=== PATIENT | female | born 1975 | race American Indian/Alaskan Native ===

== ENCOUNTER 2019-05-26 14:06 | Emergency (ER) | payer SELFPAY ==
--- NOTE | 2019-05-26 15:52 | Event Note ---
ED Screening Note Date of service: 05/26/19 Time: 15:50 ED Screening Note: 44 y o with a hx of anemia presents for fatigue weakness and dizzy spells was se nt to ED by PCP DR Khan at [facility] to be evaluated This initial assessment/diagnostic orders/clinical plan/treatment(s) is/are subject to change based on patients health status, clinical progression and re- assessment by fellow clinical providers in the ED. Further treatment and workup at subsequent clinical providers discretion. Patient/guardian urged not to elope from the ED as their condition may be serious if not clinically assessed and managed. Initial orders include: cbc, cmp
[2019-05-26 15:53] VITALS: BP 152/70
[2019-05-26 17:11] LABS: Hematocrit 22.2 % (30.3-42.9); Hemoglobin 6.9 gm/dl (10.1-14.3); Mean Corpuscular HGB Conc 31 % (30-34); Platelet Count 413 K/mm3 (140-440); Red Blood Count 3.49 M/mm3 (3.65-5.03)
[2019-05-26 17:15] LABS: Mean Corpuscular Volume 64 fl (79-97); Red Cell Distribution Width 26.4 % (13.2-15.2)
[2019-05-26 17:23] LABS: BUN/Creatinine Ratio 17; Blood Urea Nitrogen 10 mg/dL (7-17); Calcium 9.3 mg/dL (8.4-10.2); Hemolysis Index 34
[2019-05-26 18:20] LABS: Eosinophils % (Manual) 0 % (0.0-4.3); Hypochromasia 2+; Total Cells Counted 100
[2019-05-26 18:21] LABS: Anisocytosis 3+; Dimorphic RBC Yes; Giant Platelets Few; Target Cells 3+
[2019-05-26 18:22] LABS: Platelet Estimate Consistent w Auto
--- NOTE | 2019-05-26 19:43 | Emergency Department Report ---
ED General Adult HPI - General Chief complaint: Recheck/Abnormal Lab/Rx Stated complaint: DIZZY Time Seen by Provider: 05/26/19 19:32 Source: patient Mode of arrival: Ambulatory Limitations: No Limitations - History of Present Illness Initial comments: Forefoot 44-year-old [place] female with reported history of recurrent anemia last blood transfusion October 2018 presents [facility] complaining of having episodes of fatigue and dizziness and and weakness which she thinks is related to her anemia. She went to her primary care doctor last week found to have a hemoglobin of 6.2 was advised to come to the emergency department for further evaluation and treatment options. Again this hemoglobin was taken 1 week ago. States her primary care had only recommended her to increase her iron intake. She reports no hematuria no hematemesis no hematochezia. No fever, chills, sweats no chest pain or palpitations - Related Data Home Medications Medication Instructions Recorded Confirmed Last Taken Cetirizine HCl [Allergy Relief] 10 mg PO DAILY 12/11/16 12/11/16 12/16/16 Cyclobenzaprine [Flexeril] 10 mg PO BID 12/11/16 12/11/16 12/16/16 Ergocalciferol [Vitamin D2] 1 cap PO QWEEK 12/11/16 12/11/16 12/16/16 Ferrous Sulfate [Feosol] 325 mg PO QDAY 12/11/16 12/11/16 12/16/16 Folic Acid [Folvite] 1 mg PO QDAY 12/11/16 12/11/16 12/16/16 metFORMIN [Glucophage] 500 mg PO BID 12/11/16 12/17/16 2 Days Ago ~12/15/16 Lisinopril [Zestril] 10 mg PO DAILY 12/17/16 12/17/16 12/16/16 Allergies Allergy/AdvReac Type Severity Reaction Status Date / Time shellfish derived Allergy Anaphylaxis Verified 12/11/16 10:51 ED Review of Systems ROS: Stated complaint: DIZZY Other details as noted in HPI Comment: All other systems reviewed and negative ED Past Medical Hx - Past Medical History Previous Medical History?: Yes Hx Hypertension: Yes Hx Diabetes: Yes (Pre diabetic 2 years) Hx Arthritis: Yes (knees) Hx Asthma: Yes Hx HIV: No - Surgical History Past Surgical History?: Yes Additional Surgical History: Gastric sleeve - Social History Smoking Status: Current Every Day Smoker Substance Use Type: None - Medications Home Medications: Home Medications Medication Instructions Recorded Confirmed Last Taken Type Cetirizine HCl [Allergy Relief] 10 mg PO DAILY 12/11/16 12/11/16 12/16/16 History Cyclobenzaprine [Flexeril] 10 mg PO BID 12/11/16 12/11/16 12/16/16 History Ergocalciferol [Vitamin D2] 1 cap PO QWEEK 12/11/16 12/11/16 12/16/16 History Ferrous Sulfate [Feosol] 325 mg PO QDAY 12/11/16 12/11/16 12/16/16 History Folic Acid [Folvite] 1 mg PO QDAY 12/11/16 12/11/16 12/16/16 History metFORMIN [Glucophage] 500 mg PO BID 12/11/16 12/17/16 2 Days Ago History ~12/15/16 Lisinopril [Zestril] 10 mg PO DAILY 12/17/16 12/17/16 12/16/16 History ED Physical Exam - General Limitations: No Limitations General appearance: alert, in no apparent distress - Head Head exam: Present: atraumatic, normocephalic - Eye Eye exam: Present: normal appearance, PERRL, EOMI Pupils: Present: normal accommodation - ENT ENT exam: Present: normal exam, mucous membranes moist, TM's normal bilaterally - Neck Neck exam: Present: normal inspection - Respiratory Respiratory exam: Present: normal lung sounds bilaterally. Absent: respiratory distress, rales, rhonchi, chest wall tenderness, accessory muscle use - Cardiovascular Cardiovascular Exam: Present: regular rate, normal rhythm. Absent: systolic murmur, diastolic murmur, rubs, gallop - GI/Abdominal GI/Abdominal exam: Present: soft, normal bowel sounds. Absent: guarding - Rectal Rectal exam: Absent: deferred - Extremities Exam Extremities exam: Present: normal inspection - Back Exam Back exam: Present: normal inspection - Neurological Exam Neurological exam: Present: alert, oriented X3 - Psychiatric Psychiatric exam: Present: normal affect, normal mood - Skin Skin exam: Present: warm, dry, intact, normal color. Absent: rash ED Course Vital Signs 05/26/19 15:50 Temperature 98.0 F Pulse Rate 86 Respiratory 18 Rate Blood Pressure 152/70 O2 Sat by Pulse 100 Oximetry ED Medical Decision Making - Lab Data Result diagrams: 05/26/19 16:40 05/26/19 16:40 - Medical Decision Making 44-year-old [place] female with reported thalassemia with symptomatic anemia but no objective findings. States she is unable to stay for transfusion even if it was necessary due to her needing to get back to us I am encouraged her to follow-up with her primary care provider continue the iron and to hydrate well and have her her labs reevaluated in the next few days. Currently she is in no acute respiratory distress speaking in full sentences no tachycardia no easy bruising no spontaneous bleeding has been appreciated. Critical care attestation.: If time is entered above; I have spent that time in minutes in the direct care of this critically ill patient, excluding procedure time. ED Disposition Clinical Impression: Symptomatic anemia Disposition: - TO HOME OR SELFCARE Is pt being admited?: No Does the pt Need Aspirin: No Condition: Stable Instructions: Anemia (ED), Iron Deficiency Anemia (ED), Iron Rich Diet (ED) Additional Instructions: Please follow-up with your primary care care doctor for reevaluation of your anemia has your hemoglobin has improved from 6.2-6.9. Symptomatic anemia often requires blood transfusion as we discussed. Am aware that you are able to stay in the emergency department for any blood transfusions or any further treatment alternatives Referrals: PRIMARY CARE [Primary Care Provider] - 3-5 Days Forms: Work/School Release Form(ED)
== END 2019-05-26 20:02 | disposition home or self-care (01) ==
LOC: ED 14:06
DX: D64.9 Anemia, unspecified (principal); I10 Essential (primary) hypertension; E11.9 Type 2 diabetes mellitus without complications; M17.0 Bilateral primary osteoarthritis of knee; J45.909 Unspecified asthma, uncomplicated; F17.200 Nicotine dependence, unspecified, uncomplicated; Z79.899 Other long term (current) drug therapy; Z91.013 Allergy to seafood; Z98.890 Other specified postprocedural states
CPT/HCPCS: 36415; 80048; 85007; 85025; 86850; 86900; 86901; 99283

== ENCOUNTER 2019-05-31 06:46 | Emergency (ER) | payer SELFPAY ==
[2019-05-31 07:54] LABS: Hematocrit 22.3 % (30.3-42.9); Hemoglobin 6.8 gm/dl (10.1-14.3); Mean Corpuscular HGB Conc 30 % (30-34); Mean Corpuscular Volume 63 fl (79-97); Platelet Count 516 K/mm3 (140-440); Red Blood Count 3.54 M/mm3 (3.65-5.03); Red Cell Distribution Width 26.3 % (13.2-15.2)
[2019-05-31] MEDS ORDERED: SODIUM CHLORIDE 0.9% 500 ML 500 ML IV ONE (09:22)
[2019-05-31 09:25] LABS: Total Cells Counted 100
[2019-05-31 09:26] LABS: Anisocytosis 3+; Hypochromasia 3+
[2019-05-31 09:27] LABS: Platelet Estimate Consistent w Auto; Target Cells 2+
--- NOTE | 2019-05-31 09:27 | Emergency Department Report ---
ED Female HPI - General Chief complaint: Vaginal Bleeding Stated complaint: BLOOD TRANSFUSION Time Seen by Provider: 05/31/19 09:14 Source: patient Mode of arrival: Ambulatory Limitations: No Limitations - History of Present Illness Initial comments: 44-year-old female the past medical history of chronic iron deficiency anemia, thalasemia, dysfunctional uterine bleeding, and other medical conditions presents to the hospital complaints of anemia and needing a blood transfusion. Patient was seen here on May 25 after having a hemoglobin value of 6.2 resulting in lab work performed in her doctor's office. In the ER hemoglobin was 6.9 and patient declined to stay for blood transfusion. She now returns stating that she continues to have tiredness and fatigue with activity and palpitations with exertion. Mild shortness of breath reported. Patient also started her menstrual cycle on May 27 and has heavy bleeding requiring use of pads and tampons. On average patient has a menstrual cycle once a month lasting 5 to 6 days. She has been compliant with her folic acid and iron pills. Last blood transfusion was October 2018. 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 - Related Data Home Medications Medication Instructions Recorded Confirmed Last Taken Cetirizine HCl [Allergy Relief] 10 mg PO DAILY 12/11/16 12/11/16 12/16/16 Cyclobenzaprine [Flexeril] 10 mg PO BID 12/11/16 12/11/16 12/16/16 Ergocalciferol [Vitamin D2] 1 cap PO QWEEK 12/11/16 12/11/16 12/16/16 Ferrous Sulfate [Feosol] 325 mg PO QDAY 12/11/16 12/11/16 12/16/16 Folic Acid [Folvite] 1 mg PO QDAY 12/11/16 12/11/16 12/16/16 metFORMIN [Glucophage] 500 mg PO BID 12/11/16 12/17/16 2 Days Ago ~12/15/16 Lisinopril [Zestril] 10 mg PO DAILY 12/17/16 12/17/16 12/16/16 Allergies Allergy/AdvReac Type Severity Reaction Status Date / Time shellfish derived Allergy Anaphylaxis Verified 12/11/16 10:51 ED Review of Systems ROS: Stated complaint: BLOOD TRANSFUSION Other details as noted in HPI Comment: All other systems reviewed and negative ED Past Medical Hx - Past Medical History Previous Medical History?: Yes Hx Hypertension: Yes Hx Diabetes: Yes (Pre diabetic 2 years) Hx Arthritis: Yes (knees) Hx Asthma: Yes Hx HIV: No Additional medical history: Iron Defiency Anemia, Dysfunctional Uterine Bleeding, thalasemia (pt unsure what type) - Surgical History Past Surgical History?: Yes Additional Surgical History: Gastric sleeve - Social History Smoking Status: Light Tobacco Smoker - Medications Home Medications: Home Medications Medication Instructions Recorded Confirmed Last Taken Type Cetirizine HCl [Allergy Relief] 10 mg PO DAILY 12/11/16 12/11/16 12/16/16 History Cyclobenzaprine [Flexeril] 10 mg PO BID 12/11/16 12/11/16 12/16/16 History Ergocalciferol [Vitamin D2] 1 cap PO QWEEK 12/11/16 12/11/16 12/16/16 History Ferrous Sulfate [Feosol] 325 mg PO QDAY 12/11/16 12/11/16 12/16/16 History Folic Acid [Folvite] 1 mg PO QDAY 12/11/16 12/11/16 12/16/16 History metFORMIN [Glucophage] 500 mg PO BID 12/11/16 12/17/16 2 Days Ago History ~12/15/16 Lisinopril [Zestril] 10 mg PO DAILY 12/17/16 12/17/16 12/16/16 History ED Physical Exam - General Limitations: No Limitations - Other Other exam information: General: No acute distress Head: Atraumatic Eyes: normal appearance ENT: Moist mucous membranes Neck: Normal appearance, no midline tenderness Chest: Clear to auscultation bilaterally CV: Regular rate and rhythm Abdomen: Soft, normal bowel sounds, nontender, nondistended, no rebound or guarding Back: Normal inspection Extremity: Normal inspection, full range of motion Neuro: Alert O x 3, no facial asymmetry, speech clear, no gross motor sensory deficit Psych: Appropriate behavior Skin: No rash ED Course Vital Signs 05/31/19 05/31/19 05/31/19 06:50 09:08 11:30 Temperature 98.4 F 98.1 F 98.0 F Pulse Rate 79 66 61 Respiratory 18 16 9 L Rate Blood Pressure 129/77 114/56 Blood Pressure 124/83 [Left] O2 Sat by Pulse 98 98 100 Oximetry 05/31/19 05/31/19 05/31/19 11:55 12:25 12:55 Temperature 98.2 F 98.1 F 98.1 F Pulse Rate 63 58 L 56 L Respiratory 12 13 11 L Rate Blood Pressure 137/62 118/72 141/75 Blood Pressure [Left] O2 Sat by Pulse 100 100 100 Oximetry 05/31/19 05/31/19 05/31/19 13:25 13:55 14:21 Temperature 98.2 F 98.1 F 98.1 F Pulse Rate 71 75 75 Respiratory 11 L 13 11 L Rate Blood Pressure 132/77 117/75 121/66 Blood Pressure [Left] O2 Sat by Pulse 100 100 100 Oximetry ED Medical Decision Making - Lab Data Result diagrams: 05/31/19 07:09 Lab Results 05/31/19 05/31/19 05/31/19 Range/Units 07:09 07:09 07:09 WBC 7.1 (4.5-11.0) K/mm3 RBC 3.54 L (3.65-5.03) M/mm3 Hgb 6.8 L (10.1-14.3) gm/dl Hct 22.3 L (30.3-42.9) % MCV 63 L (79-97) fl MCH 19 L (28-32) pg MCHC 30 (30-34) % RDW 26.3 H (13.2-15.2) % Plt Count 516 H (140-440) K/mm3 Add Manual Diff Complete Total Counted 100 Seg Neuts % (Manual) 57.0 (40.0-70.0) % Band Neutrophils % 0 % Lymphocytes % (Manual) 29.0 (13.4-35.0) % Reactive Lymphs % (Man) 0 % Monocytes % (Manual) 11.0 H (0.0-7.3) % Eosinophils % (Manual) 2.0 (0.0-4.3) % Basophils % (Manual) 1.0 (0.0-1.8) % Metamyelocytes % 0 % Myelocytes % 0 % Promyelocytes % 0 % Blast Cells % 0 % Nucleated RBC % Not Reportable Seg Neutrophils # Man 4.0 (1.8-7.7) K/mm3 Band Neutrophils # 0.0 K/mm3 Lymphocytes # (Manual) 2.1 (1.2-5.4) K/mm3 Abs React Lymphs (Man) 0.0 K/mm3 Monocytes # (Manual) 0.8 (0.0-0.8) K/mm3 Eosinophils # (Manual) 0.1 (0.0-0.4) K/mm3 Basophils # (Manual) 0.1 (0.0-0.1) K/mm3 Metamyelocytes # 0.0 K/mm3 Myelocytes # 0.0 K/mm3 Promyelocytes # 0.0 K/mm3 Blast Cells # 0.0 K/mm3 WBC Morphology Not Reportable Hypersegmented Neuts Not Reportable Hyposegmented Neuts Not Reportable Hypogranular Neuts Not Reportable Smudge Cells Not Reportable Toxic Granulation Not Reportable Toxic Vacuolation Not Reportable Dohle Bodies Not Reportable Pelger-Huet Anomaly Not Reportable Aide Rods Not Reportable Platelet Estimate Consistent w auto Clumped Platelets Not Reportable Plt Clumps, EDTA Not Reportable Large Platelets Not Reportable Giant Platelets Not Reportable Platelet Satelliting Not Reportable Plt Morphology Comment Not Reportable RBC Morphology Not Reportable Dimorphic RBCs Not Reportable Polychromasia Not Reportable Hypochromasia 3+ Poikilocytosis Not Reportable Anisocytosis 3+ Microcytosis 2+ Macrocytosis Not Reportable Spherocytes Not Reportable Pappenheimer Bodies Not Reportable Sickle Cells Not Reportable Target Cells 2+ Tear Drop Cells Not Reportable Ovalocytes Not Reportable Helmet Cells Not Reportable Estrada-Tranquillity Bodies Not Reportable [place] Rings Not Reportable Jarret Cells Not Reportable Bite Cells Not Reportable Crenated Cell Not Reportable Elliptocytes Not Reportable Acanthocytes (Spur) Not Reportable Rouleaux Not Reportable Hemoglobin C Crystals Not Reportable Schistocytes Not Reportable Malaria parasites Not Reportable Arnoldo Bodies Not Reportable Hem Pathologist Commnt No HCG, Qual Negative (Negative) HCG, Quant < 2 (0-4) mIU/mL Urine Color (Yellow) Urine Turbidity (Clear) Urine pH (5.0-7.0) Ur Specific [place] (1.003-1.030) Urine Protein (Negative) mg/dL Urine Glucose (UA) (Negative) mg/dL Urine Ketones (Negative) mg/dL Urine Blood (Negative) Urine Nitrite (Negative) Urine Bilirubin (Negative) Urine Urobilinogen (<2.0) mg/dL Ur Leukocyte Esterase (Negative) Urine WBC (Auto) (0.0-6.0) /HPF Urine RBC (Auto) (0.0-6.0) /HPF U Epithel Cells (Auto) (0-13.0) /HPF Urine Mucus /HPF Blood Type Antibody Screen Crossmatch 05/31/19 05/31/19 05/31/19 Range/Units 07:09 09:24 Unknown WBC (4.5-11.0) K/mm3 RBC (3.65-5.03) M/mm3 Hgb (10.1-14.3) gm/dl Hct (30.3-42.9) % MCV (79-97) fl MCH (28-32) pg MCHC (30-34) % RDW (13.2-15.2) % Plt Count (140-440) K/mm3 Add Manual Diff Total Counted Seg Neuts % (Manual) (40.0-70.0) % Band Neutrophils % % Lymphocytes % (Manual) (13.4-35.0) % Reactive Lymphs % (Man) % Monocytes % (Manual) (0.0-7.3) % Eosinophils % (Manual) (0.0-4.3) % Basophils % (Manual) (0.0-1.8) % Metamyelocytes % % Myelocytes % % Promyelocytes % % Blast Cells % % Nucleated RBC % Seg Neutrophils # Man (1.8-7.7) K/mm3 Band Neutrophils # K/mm3 Lymphocytes # (Manual) (1.2-5.4) K/mm3 Abs React Lymphs (Man) K/mm3 Monocytes # (Manual) (0.0-0.8) K/mm3 Eosinophils # (Manual) (0.0-0.4) K/mm3 Basophils # (Manual) (0.0-0.1) K/mm3 Metamyelocytes # K/mm3 Myelocytes # K/mm3 Promyelocytes # K/mm3 Blast Cells # K/mm3 WBC Morphology Hypersegmented Neuts Hyposegmented Neuts Hypogranular Neuts Smudge Cells Toxic Granulation Toxic Vacuolation Dohle Bodies Pelger-Huet Anomaly Aide Rods Platelet Estimate Clumped Platelets Plt Clumps, EDTA Large Platelets Giant Platelets Platelet Satelliting Plt Morphology Comment RBC Morphology Dimorphic RBCs Polychromasia Hypochromasia Poikilocytosis Anisocytosis Microcytosis Macrocytosis Spherocytes Pappenheimer Bodies Sickle Cells Target Cells Tear Drop Cells Ovalocytes Helmet Cells Estrada-Tranquillity Bodies [place] Rings [place] Cells Bite Cells Crenated Cell Elliptocytes Acanthocytes (Spur) Rouleaux Hemoglobin C Crystals Schistocytes Malaria parasites Arnoldo Bodies Hem Pathologist Commnt HCG, Qual (Negative) HCG, Quant (0-4) mIU/mL Urine Color Yellow (Yellow) Urine Turbidity Clear (Clear) Urine pH 7.0 (5.0-7.0) Ur Specific [place] 1.018 (1.003-1.030) Urine Protein <15 mg/dl (Negative) mg/dL Urine Glucose (UA) Neg (Negative) mg/dL Urine Ketones Neg (Negative) mg/dL Urine Blood Mod (Negative) Urine Nitrite Neg (Negative) Urine Bilirubin Neg (Negative) Urine Urobilinogen < 2.0 (<2.0) mg/dL Ur Leukocyte Esterase Neg (Negative) Urine WBC (Auto) < 1.0 (0.0-6.0) /HPF Urine RBC (Auto) 3.0 (0.0-6.0) /HPF U Epithel Cells (Auto) 1.0 (0-13.0) /HPF Urine Mucus Few /HPF Blood Type O POSITIVE O POSITIVE Antibody Screen Negative Crossmatch See Detail - Medical Decision Making Patient's hemoglobin is relatively stable compared to previous visit. Patient is symptomatic received 1 unit of PRBC in the ED is feeling better after transfusion. She was observed postransfusion without incident. She be discharged to follow-up with her PROTECTION AGENT doctor, PMD and hematology referral will be added. She will also be encouraged to continue her folic acid and iron pill - Differential Diagnosis DUB, iron deficiency, folic acid deficiency, chronic anemia Critical Care Time: No Critical care attestation.: If time is entered above; I have spent that time in minutes in the direct care of this critically ill patient, excluding procedure time. ED Disposition Clinical Impression: Symptomatic anemia, DUB (dysfunctional uterine bleeding) Disposition: DC- TO HOME OR SELFCARE Is pt being admited?: No Does the pt Need Aspirin: No Condition: Stable Instructions: Dysfunctional Uterine Bleeding (ED), Anemia (ED) Additional Instructions: Continue your current medication as prescribed. Follow-up with your doctor or d octor/clinic provided. Return if symptoms worsen as indicated by your discharge instructions. Referrals: ROSENDO GOLDSTEIN MD [Staff Physician] - 3-5 Days (hematolgist) ANTONIO TIMMONS MD [Primary Care Provider] - 3-5 Days Time of Disposition: 16:26
[2019-05-31 11:28] LABS: Bilirubin,Urine NEG (Negative); Blood,Urine MOD (Negative); Color,Urine Yellow (Yellow); Mucus,Urine FEW /HPF; Protein,Urine <15 mg/dL mg/dL (Negative); Urobilinogen,Urine < 2.0 mg/dL (<2.0); WBC,Urine < 1.0 /HPF (0.0-6.0)
[2019-05-31] MEDS ORDERED: SODIUM CHLORIDE 0.9% 500 ML 500 ML ONE (11:28)
[2019-05-31 16:50] VITALS: BP 109/56
== END 2019-05-31 16:40 | disposition home or self-care (01) ==
LOC: ED 06:46
DX: D64.89 Other specified anemias (principal); N93.8 Other specified abnormal uterine and vaginal bleeding; I10 Essential (primary) hypertension; E11.9 Type 2 diabetes mellitus without complications; M17.0 Bilateral primary osteoarthritis of knee; J45.909 Unspecified asthma, uncomplicated; F17.200 Nicotine dependence, unspecified, uncomplicated; D50.9 Iron deficiency anemia, unspecified; Z98.890 Other specified postprocedural states; Z79.899 Other long term (current) drug therapy; Z91.013 Allergy to seafood
CPT/HCPCS: 36415; 36430; 81001; 84702; 84703; 85007; 85025; 86850; 86900; 86901; 86920; 99283; J7040; P9016

== ENCOUNTER 2020-07-03 16:26 | Emergency (ER) | payer BC ==
[2020-07-03] MEDS ORDERED: SODIUM CHLORIDE 0.9% 1000 ML 1,000 ML IV ONE (17:01)
--- NOTE | 2020-07-03 17:06 | Emergency Department Report ---
HPI - General Chief Complaint: Syncope Time Seen by Provider: 07/03/20 16:45 - HPI HPI: This is a 45-year-old female presents to the emergency department via EMS from home with the complaint of a syncopal episode that occurred just prior to presentation. The patient says that she was going into the room to get some close and get ready for work after just having an argument on the phone with her fianc's child. The next thing that she remembers is "my sister trying to get me up off the ground." The patient also says that her sister spent "a while" trying to wake her up after she lost consciousness. Patient says that she last had a syncopal episode in November of last year. She currently complains of some mild midsternal chest tightness, and a generalized headache. The headache is 8 out of 10 in intensity and is a throbbing/squeezing sensation. This is also associated with some lightheadedness/dizziness. She denies any fever, vision change, slurred speech, numbness or paresthesias, facial droop, weakness, shortness of breath, lower extremity swelling. She has a past medical history of anemia and some type of thalassemia. The patient previously had an issue with hypertension and prediabetes but that resolved after gastric sleeve surgery. She follows with [facility] for primary care. No recent travel or sick contacts at home. She did not take anything, nor receive anything, for symptoms prior to presentation today. ED Past Medical Hx - Past Medical History Hx Hypertension: Yes Hx Congestive Heart Failure: No Hx Diabetes: Yes (Pre diabetic 2 years) Hx Arthritis: Yes (knees) Hx Asthma: Yes Hx COPD: No Hx HIV: No Additional medical history: Iron Defiency Anemia, Dysfunctional Uterine Bleeding, thalasemia (pt unsure what type) - Surgical History Additional Surgical History: Gastric sleeve - Social History Smoking Status: Current Every Day Smoker - Medications Home Medications: Home Medications Medication Instructions Recorded Confirmed Last Taken Type Cetirizine HCl [Allergy Relief] 10 mg PO DAILY 12/11/16 12/11/16 12/16/16 Hist ory Cyclobenzaprine [Flexeril] 10 mg PO BID 12/11/16 12/11/16 12/16/16 History Ergocalciferol [Vitamin D2] 1 cap PO QWEEK 12/11/16 12/11/1612/16/17 History Ferrous Sulfate [Feosol] 325 mg PO QDAY 12/11/16 12/11/16 12/16/16 History Folic Acid [Folvite] 1 mg PO QDAY 12/11/16 12/11/16 12/16/16 History metFORMIN [Glucophage] 500 mg PO BID 12/11/16 12/17/16 2 Days Ago History ~12/15/16 Lisinopril [Zestril] 10 mg PO DAILY 12/17/16 12/17/16 12/16/16 History ED Review of Systems ROS: Stated complaint: WEAKNESS Other details as noted in HPI Comment: All other systems reviewed and negative Constitutional: denies: chills, fever Eyes: denies: eye pain, vision change ENT: denies: ear pain, throat pain Respiratory: denies: cough, shortness of breath Cardiovascular: chest pain, syncope. denies: edema Gastrointestinal: denies: abdominal pain, vomiting Genitourinary: denies: dysuria, discharge Musculoskeletal: denies: back pain, arthralgia Skin: denies: rash, lesions Neurological: headache. denies: weakness, numbness, paresthesias Physical Exam - Physical Exam Physical Exam: GENERAL: The patient is well-developed well-nourished. HENT: Normocephalic. Atraumatic. Patient has moist mucous membranes. EYES: Extraocular motions are intact. No nystagmus. NECK: Supple. Trachea is midline. CHEST/LUNGS: Clear to auscultation. There is no respiratory distress noted. HEART/CARDIOVASCULAR: Regular. There is no tachycardia. There is no murmur. ABDOMEN: Abdomen is soft, nontender. Patient has normal bowel sounds. SKIN: Skin is warm and dry. NEURO: The patient is awake, alert, and oriented. The patient is cooperative. The patient has no focal neurologic deficits. Normal speech. Cranial nerves II through XII grossly intact. No facial asymmetry. No pronator drift or dysmetria. MUSCULOSKELETAL: There is no tenderness or deformity. There is no limitation range of motion. ED Medical Decision Making - Lab Data Result diagrams: 07/03/20 17:22 07/03/20 17:22 Lab Results 07/03/20 07/03/20 07/03/20 Range/Units 17:22 17:22 17:22 WBC 5.5 (4.5-11.0) K/mm3 RBC 4.25 (3.65-5.03) M/mm3 Hgb 8.6 L (10.1-14.3) gm/dl Hct 27.1 L (30.3-42.9) % MCV 64 L (79-97) fl MCH 20 L (28-32) pg MCHC 32 (30-34) % RDW 22.8 H (13.2-15.2) % Plt Count 338 (140-440) K/mm3 Lymph % (Auto) Color Control Supervisor Add Manual Diff Complete Total Counted 100 Seg Neutrophils % Color Control Supervisor Seg Neuts % (Manual) 57.0 (40.0-70.0) % Lymphocytes % (Manual) 34.0 (13.4-35.0) % Monocytes % (Manual) 5.0 (0.0-7.3) % Eosinophils % (Manual) 3.0 (0.0-4.3) % Basophils % (Manual) 1.0 (0.0-1.8) % Nucleated RBC % Not Reportable Seg Neutrophils # Man 3.1 (1.8-7.7) K/mm3 Band Neutrophils # 0.0 K/mm3 Lymphocytes # (Manual) 1.9 (1.2-5.4) K/mm3 Abs React Lymphs (Man) 0.0 K/mm3 Monocytes # (Manual) 0.3 (0.0-0.8) K/mm3 Eosinophils # (Manual) 0.2 (0.0-0.4) K/mm3 Basophils # (Manual) 0.1 (0.0-0.1) K/mm3 Metamyelocytes # 0.0 K/mm3 Myelocytes # 0.0 K/mm3 Promyelocytes # 0.0 K/mm3 Blast Cells # 0.0 K/mm3 WBC Morphology Not Reportable Hypersegmented Neuts Not Reportable Hyposegmented Neuts Not Reportable Hypogranular Neuts Not Reportable Smudge Cells Not Reportable Toxic Granulation Not Reportable Toxic Vacuolation Not Reportable Dohle Bodies Not Reportable Pelger-Huet Anomaly Not Reportable Aide Rods Not Reportable Platelet Estimate Consistent w auto Clumped Platelets Not Reportable Plt Clumps, EDTA Not Reportable Large Platelets Rare Giant Platelets Not Reportable Platelet Satelliting Not Reportable Plt Morphology Comment Not Reportable RBC Morphology Not Reportable Dimorphic RBCs Not Reportable Polychromasia Not Reportable Hypochromasia 2+ Poikilocytosis Not Reportable Anisocytosis 1+ Microcytosis 2+ Macrocytosis Not Reportable Spherocytes Not Reportable Pappenheimer Bodies Not Reportable Sickle Cells Not Reportable Target Cells 1+ Tear Drop Cells Not Reportable Ovalocytes Not Reportable Helmet Cells Not Reportable [place] Bodies Not Reportable [place] Rings Not Reportable Jarret Cells Not Reportable Bite Cells Not Reportable Crenated Cell Not Reportable Elliptocytes Not Reportable Acanthocytes (Spur) Not Reportable Rouleaux Not Reportable Hemoglobin C Crystals Not Reportable Schistocytes Not Reportable Malaria parasites Not Reportable Arnoldo Bodies Not Reportable Hem Pathologist Commnt No PT (12.2-14.9) Sec. INR (0.87-1.13) Sodium 138 (137-145) mmol/L Potassium 3.8 (3.6-5.0) mmol/L Chloride 104.6 (98-107) mmol/L Carbon Dioxide 23 (22-30) mmol/L Anion Gap 14 mmol/L BUN 7 (7-17) mg/dL Creatinine 0.5 L (0.6-1.2) mg/dL Estimated GFR > 60 ml/min BUN/Creatinine Ratio 14 % Glucose 80 (65-100) mg/dL Calcium 9.2 (8.4-10.2) mg/dL Total Bilirubin 0.30 (0.1-1.2) mg/dL AST 10 (5-40) units/L ALT < 5 L (7-56) units/L Alkaline Phosphatase 79 (35-129) units/L Troponin T < 0.010 (0.00-0.029) ng/mL Total Protein 7.6 (6.3-8.2) g/dL Albumin 4.1 (3.9-5) g/dL Albumin/Globulin Ratio 1.2 % TSH 0.537 (0.270-4.200) mlU/mL Plasma/Serum Alcohol (0-0.07) % 07/03/20 07/03/20 Range/Units 17:22 17:22 WBC (4.5-11.0) K/mm3 RBC (3.65-5.03) M/mm3 Hgb (10.1-14.3) gm/dl Hct (30.3-42.9) % MCV (79-97) fl MCH (28-32) pg MCHC (30-34) % RDW (13.2-15.2) % Plt Count (140-440) K/mm3 Lymph % (Auto) Add Manual Diff Total Counted Seg Neutrophils % Seg Neuts % (Manual) (40.0-70.0) % Lymphocytes % (Manual) (13.4-35.0) % Monocytes % (Manual) (0.0-7.3) % Eosinophils % (Manual) (0.0-4.3) % Basophils % (Manual) (0.0-1.8) % Nucleated RBC % Seg Neutrophils # Man (1.8-7.7) K/mm3 Band Neutrophils # K/mm3 Lymphocytes # (Manual) (1.2-5.4) K/mm3 Abs React Lymphs (Man) K/mm3 Monocytes # (Manual) (0.0-0.8) K/mm3 Eosinophils # (Manual) (0.0-0.4) K/mm3 Basophils # (Manual) (0.0-0.1) K/mm3 Metamyelocytes # K/mm3 Myelocytes # K/mm3 Promyelocytes # K/mm3 Blast Cells # K/mm3 WBC Morphology Hypersegmented Neuts Hyposegmented Neuts Hypogranular Neuts Smudge Cells Toxic Granulation Toxic Vacuolation Dohle Bodies Pelger-Huet Anomaly Aide Rods Platelet Estimate Clumped Platelets Plt Clumps, EDTA Large Platelets Giant Platelets Platelet Satelliting Plt Morphology Comment RBC Morphology Dimorphic RBCs Polychromasia Hypochromasia Poikilocytosis Anisocytosis Microcytosis Macrocytosis Spherocytes Pappenheimer Bodies Sickle Cells Target Cells Tear Drop Cells Ovalocytes Helmet Cells [place] Bodies [place] Rings Jarret Cells Bite Cells Crenated Cell Elliptocytes Acanthocytes (Spur) Rouleaux Hemoglobin C Crystals Schistocytes Malaria parasites Arnoldo Bodies Hem Pathologist Commnt PT 13.2 (12.2-14.9) Sec. INR 1.02 (0.87-1.13) Sodium (137-145) mmol/L Potassium (3.6-5.0) mmol/L Chloride (98-107) mmol/L Carbon Dioxide (22-30) mmol/L Anion Gap mmol/L BUN (7-17) mg/dL Creatinine (0.6-1.2) mg/dL Estimated GFR ml/min BUN/Creatinine Ratio % Glucose (65-100) mg/dL Calcium (8.4-10.2) mg/dL Total Bilirubin (0.1-1.2) mg/dL AST (5-40) units/L ALT (7-56) units/L Alkaline Phosphatase (35-129) units/L Troponin T (0.00-0.029) ng/mL Total Protein (6.3-8.2) g/dL Albumin (3.9-5) g/dL Albumin/Globulin Ratio % TSH (0.270-4.200) mlU/mL Plasma/Serum Alcohol < 0.01 (0-0.07) % - EKG Data -: EKG Interpreted by Me EKG shows normal: sinus rhythm, axis, intervals, QRS complexes, ST-T waves Rate: normal - EKG Data When compared to previous EKG there are: no significant change Interpretation: normal EKG, unchanged when compared t (11/24/19) - Radiology Data Radiology results: report reviewed, image reviewed interpreted by me: Chest x-ray does not show any acute process. There are no pleural effusions, obvious pneumonia and there is no pneumothorax. No significant cardiomegaly. CT HEAD WITHOUT CONTRAST INDICATION / CLINICAL INFORMATION: Syncope, Headache. TECHNIQUE: All CT scans at this location are performed using CT dose reduction for ALARA by means of automated exposure control. COMPARISON: None available. FINDINGS: HEMORRHAGE: No evidence of intracranial hemorrhage or extra-axial fluid collection. EXTRA-AXIAL SPACES: Cortical sulci, sylvian fissures and ba silar cisterns have an unremarkable appearance. VENTRICULAR SYSTEM: The third and lateral ventricles are of normal size and configuration. CEREBRAL PARENCHYMA: No areas of abnormal brain parenchymal attenuation are identified. There is no indication of recent infarction. MIDLINE SHIFT OR HERNIATION: There is no mass effect. CEREBELLUM / BRAINSTEM: Brainstem and cerebellum have an unremarkable appearance. MIDLINE STRUCTURES:No abnormalities of the pituitary gland or pineal region are identified. INTRACRANIAL VESSELS:No abnormalities are identified on this noncontrast head CT. ORBITS: visualized portions of the orbits have an unremarkable appearance. SOFT TISSUES of HEAD: No significant abnormality. CALVARIUM: Evaluation of bone windows reveals no abnormalities. PARANASAL SINUSES / MASTOID AIR CELLS: Visualized portions of the paranasal sinuses are free from inflammatory mucosal disease. Mastoid air cells are normally pneumatized. ADDITIONAL FINDINGS: A calcified 10 mm diameter lesion is present adjacent to the anterior clinoid process extending down along the lateral aspect of the left cavernous sinus. This could represent a meningioma. Follow-up with magnetic resonance imaging of the brain both before and after the administration of intravenous contrast material is recommended. IMPRESSION: 1. Possible 10 mm diameter calcified meningioma adjacent to the left anterior clinoid process and along the lateral aspect of the left cavernous sinus as described above. Further evaluation to include MRI of brain without and with contrast is suggested. 2. No additional abnormalities head CT without contrast. - Medical Decision Making This patient presents to the emergency department after she had a witnessed syncopal episode at home prior to presentation. On examination she does not have any focal, motor or sensory deficits and her cranial nerves are intact. Since the patient did have the syncopal episode and complains of a headache, we obtained a CT scan of the head without contrast. The CT scan did not show any hemorrhage, large vessel occlusion, or any other acute process. However it does show concern for a possible 10 mm calcified meningioma. EKG did not have any morphology consistent with ST elevation myocardial infarction. Patient's labs were mostly unremarkable including CBC, metabolic panel, negative troponin, normal thyroid function, normal blood alcohol level. The patient did have some anemia with a hemoglobin of 8.6. The patient does not appear pale or have pale conjunctiva. There is no tachycardia, tachypnea, hypoxia. It does not appear that the patient's syncopal episode is secondary to this anemia and t he patient does not require a blood transfusion. She does have a known history of anemia. The patient was given some gentle IV fluid resuscitation and a dose of Toradol. Upon reevaluation her headache has resolved. Patient has been seen ambulatory around the emergency department and both appears and feels stable. Initially the patient had complained of some midsternal chest tightness. As p reviously stated the EKG did not have any morphology consistent with ST elevation myocardial infarction. Chest x-ray did not show any pneumonia, pleural effusions, pneumothorax, or any other acute process. Troponin was negative. She is low on the heart score. The patient does not have any risk f actors concerning for thromboembolic disease. She did not have any complaints of lower extremity swelling. No recent surgery, recent travel or recent immobility. The patient is low on the Wells score criteria negative on the pulmonary embolism rule out criteria. For all these reasons the patient appears safe for discharge home at this time. She has been instructed to follow-up with her primary care physician. She has been given an outpatient referral for a local neurosurgeon to follow-up r egarding the possible meningioma. Her contact information has been sent over to the [facility], and someone from their office should be contacting her shortly for close outpatient follow-up as per our [facility] low risk chest pain protocol. She will return to the emergency department with any worsening of her symptoms or with any acute distress. Critical Care Time: No Critical care attestation.: If time is entered above; I have spent that time in minutes in the direct care of this critically ill patient, excluding procedure time. ED Disposition Clinical Impression: Meningioma Syncope Qualifiers: Syncope type: unspecified Qualified Code(s): R55 - Syncope and collapse Anemia Qualifiers: Anemia type: unspecified type Qualified Code(s): D64.9 - Anemia, unspecified Disposition: DC-01 TO HOME OR SELFCARE Is pt being admited?: No Condition: Stable Instructions: Orthostatic Hypotension, Meningioma, Syncope, Syncope (ED) Additional Instructions: Please follow-up with your primary care physician in the next few days. I have given you a referral for a local neurosurgeon, Dr. Km Fox. Please follow-up with a neurosurgeon regarding the CT findings of a possible meningioma. Return to the emergency department with any worsening of your symptoms, new or concerning symptoms not addressed during this current emergency department visit, or with any acute distress. Referrals: [facility] [Provider Group] - 3-5 Days KM FOX II, MD [Staff Physician] - 3-5 Days HEART Score - HEART Score History: Slightly suspicious EKG: Normal Age: 45-65 Risk factors: 1-2 risk factors Troponin: < normal limit HEART Score: 2 - Critical Actions Critical Actions: 0-3 pts:0.9-1.7%risk of adverse cardiac event.Candidate for discharge
--- NOTE | 2020-07-03 17:26 | XRay Report ---
CHEST 1 VIEW 07/03/2020 4:15 PM INDICATION / CLINICAL INFORMATION: Chest pain. COMPARISON: None available. FINDINGS: SUPPORT DEVICES: None. HEART / MEDIASTINUM: No significant abnormality. LUNGS / PLEURA: Clear lungs. No significant pleural effusion. No pneumothorax. ADDITIONAL FINDINGS: No significant additional findings. IMPRESSION: 1. No acute abnormality of the chest. Signer Name: Frantz Garcia MD Signed: 07/03/2020 5:21 PM Workstation Name: [id number]
[2020-07-03 17:45] LABS: Hematocrit 27.1 % (30.3-42.9); Hemoglobin 8.6 gm/dl (10.1-14.3); Mean Corpuscular HGB Conc 32 % (30-34); Platelet Count 338 K/mm3 (140-440); Red Blood Count 4.25 M/mm3 (3.65-5.03)
[2020-07-03 17:47] LABS: Mean Corpuscular Volume 64 fl (79-97); Red Cell Distribution Width 22.8 % (13.2-15.2)
[2020-07-03 17:54] LABS: INR 1.02 (0.87-1.13)
[2020-07-03 18:12] LABS: Albumin 4.1 g/dL (3.9-5); Blood Urea Nitrogen 7 mg/dL (7-17); Calcium 9.2 mg/dL (8.4-10.2); Hemolysis Index 6
[2020-07-03 18:16] LABS: Alanine Aminotransferase < 5 units/L (7-56); BUN/Creatinine Ratio 14
--- NOTE | 2020-07-03 18:45 | Cat Scan Report ---
CT HEAD WITHOUT CONTRAST INDICATION / CLINICAL INFORMATION: Syncope, Headache. TECHNIQUE: All CT scans at this location are performed using CT dose reduction for ALARA by means of automated e xposure control. COMPARISON: None available. FINDINGS: HEMORRHAGE: No evidence of intracranial hemorrhage or extra-axial fluid collection. EXTRA-AXIAL SPACES: Cortical sulci, sylvian fissures and basilar cisterns have an unremarkable appear ance. VENTRICULAR SYSTEM: The third and lateral ventricles are of normal size and configuration. CEREBRAL PARENCHYMA: No areas of abnormal brain parenchymal attenuation are identified. There is no i ndication of recent infarction. MIDLINE SHIFT OR HERNIATION: There is no mass effect. CEREBELLUM / BRAINSTEM: Brainstem and cerebellum have an unremarkable appearance. MIDLINE STRUCTURES:No abnormalities of the pituitary gland or pineal region are identified. INTRACRANIAL VESSELS:No abnormalities are identified on this noncontrast head CT. ORBITS: visualized portions of the orbits have an unremarkable appearance. SOFT TISSUES of HEAD: No significant abnormality. CALVARIUM: Evaluation of bone windows reveals no abnormalities. PARANASAL SINUSES / MASTOID AIR CELLS: Visualized portions of the paranasal sinuses are free from inf lammatory mucosal disease. Mastoid air cells are normally pneumatized. ADDITIONAL FINDINGS: A calcified 10 mm diameter lesion is present adjacent to the anterior clinoid pr ocess extending down along the lateral aspect of the left cavernous sinus. This could represent a men ingioma. Follow-up with magnetic resonance imaging of the brain both before and after the administrat ion of intravenous contrast material is recommended. IMPRESSION: 1. Possible 10 mm diameter calcified meningioma adjacent to the left anterior clinoid process and daniel ng the lateral aspect of the left cavernous sinus as described above. Further evaluation to include M RI of brain without and with contrast is suggested. 2. No additional abnormalities head CT without contrast. Signer Name: Patrick Tinajero MD Signed: 07/03/2020 6:41 PM Workstation Name: [id number]
[2020-07-03] MEDS ORDERED: KETOROLAC 30 MG/1 ML INJ IV ONE (19:00)
[2020-07-03 20:19] LABS: Total Cells Counted 100
[2020-07-03 20:20] LABS: Anisocytosis 1+; Hypochromasia 2+; Target Cells 1+
[2020-07-03 20:23] VITALS: BP 106/61
[2020-07-03 20:23] LABS: Large Platelets Rare; Platelet Estimate Consistent w Auto
--- NOTE | 2020-07-06 10:36 | Electrocardiograph Report ---
[facility] Test Date: 2020-07-03 Test Time: 17:02:36 Pat Name: THALIA GAXIOLA Department: Room: Gender: F Chain Person: DINAH : 1975 Requested By: GUNJAN CAIN Order Number: [id number] Reading MD: Leena Cota Measurements Intervals [place] Rate: 66 P: 71 WI: 150 QRS: 41 QRSD: 97 T: 37 QT: 427 QTc: 447 Interpretive Statements Sinus rhythm No previous ECG available for comparison Electronically Signed On 07-06-2020 10:35:54 EDT by Leena Cota
== END 2020-07-03 20:24 | disposition home or self-care (01) ==
LOC: ED 16:26
DX: D32.9 Benign neoplasm of meninges, unspecified (principal); R55 Syncope and collapse; D64.9 Anemia, unspecified; I10 Essential (primary) hypertension; E11.9 Type 2 diabetes mellitus without complications; M19.91 Primary osteoarthritis, unspecified site; J45.909 Unspecified asthma, uncomplicated; F17.200 Nicotine dependence, unspecified, uncomplicated; Z98.890 Other specified postprocedural states; Z79.84 Long term (current) use of oral hypoglycemic drugs; Z79.899 Other long term (current) drug therapy; Z91.013 Allergy to seafood
CPT/HCPCS: 36415; 70450; 71045; 80053; 84443; 84484; 85007; 85025; 85610; 93005; 96361; 96374; 99285; J1885; J7030; 80320; G0480

== ENCOUNTER 2020-07-21 10:14 | Outpatient (CLI) | payer BC ==
--- NOTE | 2020-07-21 12:28 | Magnetic Resonance Report ---
MRI BRAIN 07/21/2020 INDICATION / CLINICAL INFORMATION: Syncope. Headache.. TECHNIQUE: Multiplanar, multisequence MR images of the brain were obtained. COMPARISON: CT brain 07/03/2020 FINDINGS: BRAIN / INTRACRANIAL CONTENTS: Unenhanced and enhanced MR images of the brain demonstrate no evidence of acute intracranial abnormality. Ventricles and sulci are normal in size and shape. There is no evidence of ischemic injury, demyelination, hemorrhage, or mass. There are no abnormal ex tra-axial fluid collections. Postcontrast images demonstrate no abnormal contrast enhancement. On the prior head CT, there was question of possible calcified meningioma in left cavernous sinus reg ion. There is no evidence of abnormal enhancing soft tissue seen in this area on the MRI, and the pre vious finding most likely represented benign dural calcification without underlying lesion. EXTRACRANIAL: Unremarkable CRANIOCERVICAL JUNCTION: No significant abnormality. VASCULAR FLOW-VOIDS: No significant abnormality. IMPRESSION: No significant abnormality. Essentially negative unenhanced and enhanced MRI of the brain. Signer Name: Petros Navarro MD Signed: 07/21/2020 12:24 PM Workstation Name: [id number]
== END 2020-07-21 10:15 | disposition home or self-care (01) ==
LOC: MRI 10:14
PROVIDERS: ATTEND Psychiatry & Neurology Neurology
DX: G93.9 Disorder of brain, unspecified (principal)
CPT/HCPCS: 70553; A9575